=== PATIENT | female | born 1955 | race African-American/Black ===

== ENCOUNTER 2017-01-04 13:28 | Emergency (ER) | payer MEDICAID ==
[~2017-01-04] VITALS: Ht 167.6 cm; Wt 60.0 kg
[2017-01-04 15:26] LABS: BASOPHILS % 0.3 % (0.0-2.0); EOSINOPHILS % 0.2 % (0.0-5.0); HEMATOCRIT. 30.1 % (36.0-48.0); HEMOGLOBIN. 10.2 g/dL (12.0-16.0); LYMPHOCYTES % 42.5 % (20.0-50.0); MEAN CORPUSCULAR HEMOGLOBIN 34.3 pg (28.0-32.0); MEAN CORPUSCULAR VOLUME 100.9 fL (81.0-99.0); MEAN PLATELET VOLUME 9.3 fl (7.4-10.4); MONOCYTES % 12.6 % (2.0-8.0); NEUTROPHILS % 44.4 % (40.0-76.0); PLATELET 135 x1000/uL (130-400); RED BLOOD CELL COUNT 2.98 mill/uL (4.2-5.4); RED CELL DISTRIBUTION WIDTH 15.7 % (11.6-14.6)
[2017-01-04 15:27] LABS: CHLORIDE 108 mEq/L (98-107)
[2017-01-04 15:37] LABS: CARBON DIOXIDE 29 mEq/L (21-32); ETHANOL BLOOD < 10 mg/dL
[2017-01-04] MEDS ORDERED: IBUPROFEN 600MG TABLET PO ONE (17:15)
[2017-01-04 17:58] LABS: CLARITY URINE CLEAR (CLEAR); COLOR URINE YELLOW (YELLOW); GLUCOSE URINE NEGATIVE (NEGATIVE); KETONES URINE NEGATIVE (NEGATIVE); LEUKOCYTE ESTERASE URINE TRACE (NEGATIVE); NITRITE URINE NEGATIVE (NEGATIVE); OCCULT BLOOD URINE NEGATIVE (NEGATIVE); PROTEIN URINE NEGATIVE (NEGATIVE); SPECIFIC GRAVITY URINE 1.014 (1.005-1.030); UROBILINOGEN URINE 0.2 E.U./dL (0.2-1.0)
[2017-01-04 18:14] LABS: *AMPHETAMINES SCREEN URINE NEGATIVE (NEGATIVE); *BARBITURATES SCREEN URINE NEGATIVE (NEGATIVE); *BENZODIAZEPINES SCREEN URINE NEGATIVE (NEGATIVE); *COCAINE SCREEN URINE PRESUMTIVE POSITIVE (NEGATIVE); CANNABINOID URINE SCREEN PRESUMTIVE POSITIVE (NEGATIVE); METHADONE URINE SCREEN NEGATIVE (NEGATIVE); OPIATES URINE SCREEN NEGATIVE (NEGATIVE); PHENCYCLIDINE URINE SCREEN NEGATIVE (NEGATIVE)
[2017-01-04] MEDS: SULFAMETHOXAZOLE/TRIMETHOPRIM 800/160MG TABLET PO SCH (20:02)
[2017-01-05] MEDS ORDERED: HYDROCODONE/APAP 7.5/325MG 1 TAB TABLET PO ONE (03:15)
[2017-01-05] MEDS: SULFAMETHOXAZOLE/TRIMETHOPRIM 800/160MG TABLET PO SCH (09:54)
[2017-01-05 12:55] VITALS: BP 138/85
== END 2017-01-05 13:19 ==
LOC: ER 13:28
DX: R45.851 Suicidal ideations (principal); N39.0 Urinary tract infection, site not specified; F20.9 Schizophrenia, unspecified; F12.10 Cannabis abuse, uncomplicated; F14.10 Cocaine abuse, uncomplicated; G89.29 Other chronic pain; Z85.3 Personal history of malignant neoplasm of breast; Z90.710 Acquired absence of both cervix and uterus; Z98.890 Other specified postprocedural states; Z92.21 Personal history of antineoplastic chemotherapy
CPT/HCPCS: 36415; 80053; 80305; 80307; 80329; 81001; 85025; 99285; G0482; Z7610

== ENCOUNTER 2017-03-15 07:49 | Emergency (ER) | payer MEDICAID ==
[~2017-03-15] VITALS: Ht 162.6 cm; Wt 50.0 kg
[2017-03-15 09:16] LABS: HEMATOCRIT. 34.4 % (36.0-48.0); HEMOGLOBIN. 11.8 g/dL (12.0-16.0); MEAN CORPUSCULAR HEMOGLOBIN 34.1 pg (28.0-32.0); MEAN CORPUSCULAR VOLUME 99.3 fL (81.0-99.0); MEAN PLATELET VOLUME 9.2 fl (7.4-10.4); PLATELET 170 x1000/uL (130-400); RED BLOOD CELL COUNT 3.46 mill/uL (4.2-5.4); RED CELL DISTRIBUTION WIDTH 14.3 % (11.6-14.6)
[2017-03-15 09:34] LABS: CARBON DIOXIDE 27 mEq/L (21-32); CHLORIDE 107 mEq/L (98-107); ETHANOL BLOOD < 10 mg/dL
[2017-03-15 09:46] LABS: PLATELET ESTIMATE NORMAL
[2017-03-15 16:37] LABS: CLARITY URINE CLEAR (CLEAR); COLOR URINE YELLOW (YELLOW); GLUCOSE URINE NEGATIVE (NEGATIVE); KETONES URINE NEGATIVE (NEGATIVE); LEUKOCYTE ESTERASE URINE 1+ (NEGATIVE); NITRITE URINE NEGATIVE (NEGATIVE); OCCULT BLOOD URINE TRACE (NEGATIVE); PROTEIN URINE NEGATIVE (NEGATIVE); SPECIFIC GRAVITY URINE 1.021 (1.005-1.030)
[2017-03-15 16:54] LABS: *AMPHETAMINES SCREEN URINE NEGATIVE (NEGATIVE); *BARBITURATES SCREEN URINE NEGATIVE (NEGATIVE); *BENZODIAZEPINES SCREEN URINE NEGATIVE (NEGATIVE); *COCAINE SCREEN URINE PRESUMTIVE POSITIVE (NEGATIVE); CANNABINOID URINE SCREEN PRESUMTIVE POSITIVE (NEGATIVE); METHADONE URINE SCREEN NEGATIVE (NEGATIVE); OPIATES URINE SCREEN NEGATIVE (NEGATIVE); PHENCYCLIDINE URINE SCREEN NEGATIVE (NEGATIVE)
[2017-03-15] MEDS ORDERED: POTASSIUM CHLORIDE 20MEQ TABLET SR PO ONE (18:30)
[2017-03-15] MEDS ORDERED: LISI-604 PO (22:25)
[2017-03-15] MEDS ORDERED: TEMA15CA PO (22:25)
[2017-03-15] MEDS ORDERED: DIVA250T PO (22:25)
[2017-03-16] MEDS ORDERED: MAGNESIUM 1 G PREMIX 100 ML IV ONE (03:30)
[2017-03-16] MEDS ORDERED: POTASSIUM CHLORIDE 20MEQ TABLET SR PO ONE (03:30)
[2017-03-16] MEDS ORDERED: NITROFURANTOIN 100MG M/M CAPSULE PO ONE (06:45)
[2017-03-16 11:22] VITALS: BP 132/62
== END 2017-03-16 16:32 | disposition home or self-care (01) ==
LOC: ER 08:06
DX: R45.851 Suicidal ideations (principal); N39.0 Urinary tract infection, site not specified; F20.9 Schizophrenia, unspecified; I10 Essential (primary) hypertension; F12.10 Cannabis abuse, uncomplicated; F14.10 Cocaine abuse, uncomplicated; Z85.3 Personal history of malignant neoplasm of breast; Z90.710 Acquired absence of both cervix and uterus
CPT/HCPCS: 36415; 80048; 80305; 80307; 80329; 81001; 83735; 84132; 85025; 96365; 96366; 99285; G0482; J3475; Z7610

== ENCOUNTER 2017-04-03 12:40 | Emergency (ER) | payer MEDICAID ==
[~2017-04-03] VITALS: Ht 167.6 cm; Wt 59.0 kg
[~2017-04-03 12:40] MED LIST: DIVA250T PO; LISI-604 PO; TEMA15CA PO
[2017-04-03 15:23] LABS: *AMPHETAMINES SCREEN URINE NEGATIVE (NEGATIVE); *BARBITURATES SCREEN URINE NEGATIVE (NEGATIVE); *BENZODIAZEPINES SCREEN URINE NEGATIVE (NEGATIVE); *COCAINE SCREEN URINE PRESUMTIVE POSITIVE (NEGATIVE); CANNABINOID URINE SCREEN NEGATIVE (NEGATIVE); METHADONE URINE SCREEN NEGATIVE (NEGATIVE); OPIATES URINE SCREEN NEGATIVE (NEGATIVE); PHENCYCLIDINE URINE SCREEN NEGATIVE (NEGATIVE)
[2017-04-03 17:12] VITALS: BP 138/76
== END 2017-04-03 17:15 | disposition home or self-care (01) ==
LOC: ER 13:31
DX: M79.604 Pain in right leg (principal); M79.605 Pain in left leg; I10 Essential (primary) hypertension; F20.9 Schizophrenia, unspecified; F17.200 Nicotine dependence, unspecified, uncomplicated; F14.10 Cocaine abuse, uncomplicated; Z90.710 Acquired absence of both cervix and uterus; Z85.3 Personal history of malignant neoplasm of breast; Z98.890 Other specified postprocedural states
CPT/HCPCS: 80305; 93970; 99285; Z7610

== ENCOUNTER 2017-06-19 19:10 | Emergency (ER) | payer MEDICAID ==
[~2017-06-19] VITALS: Ht 165.1 cm; Wt 55.0 kg
[2017-06-19] MEDS ORDERED: HYDROCODONE/ACETAMINOPHEN 5/325MG TABLET PO ONE (21:45)
[2017-06-20 00:14] VITALS: BP 129/86
== END 2017-06-20 00:23 | disposition home or self-care (01) ==
LOC: ER 19:21
DX: R07.89 Other chest pain (principal); Z48.01 Encounter for change or removal of surgical wound dressing; I10 Essential (primary) hypertension; F20.9 Schizophrenia, unspecified; F17.200 Nicotine dependence, unspecified, uncomplicated; Z85.3 Personal history of malignant neoplasm of breast; Z90.11 Acquired absence of right breast and nipple
CPT/HCPCS: 71045; 99284; Z7610

== ENCOUNTER 2017-06-22 16:01 | Emergency (ER) | payer MEDICAID ==
[~2017-06-22] VITALS: Ht 165.1 cm; Wt 50.0 kg
[2017-06-22] MEDS ORDERED: HYDROCODONE/ACETAMINOPHEN 10/325MG TABLET PO ONE (17:00)
[2017-06-22 17:32] VITALS: BP 144/79
== END 2017-06-22 18:18 | disposition home or self-care (01) ==
LOC: ER 16:13
DX: G89.18 Other acute postprocedural pain (principal); N64.4 Mastodynia; I10 Essential (primary) hypertension; Z90.11 Acquired absence of right breast and nipple
CPT/HCPCS: 99283

== ENCOUNTER 2017-12-04 18:26 | Emergency (ER) | payer MEDICAID ==
[~2017-12-04] VITALS: Ht 167.6 cm; Wt 54.0 kg
[~2017-12-04 18:26] MED LIST changes: +DIVA-73 PO; -DIVA250T PO; +HYDR-4005 PO
[2017-12-04 23:33] LABS: BASOPHILS % 0.7 % (0.0-2.0); EOSINOPHILS % 4.4 % (0.0-5.0); HEMOGLOBIN. 12.5 g/dL (12.0-16.0); LYMPHOCYTES % 55.7 % (20.0-50.0); MEAN CORPUSCULAR HEMOGLOBIN 32.6 pg (28.0-32.0); MEAN CORPUSCULAR VOLUME 96.6 fL (81.0-99.0); MEAN PLATELET VOLUME 8.4 fl (7.4-10.4); MONOCYTES % 8.7 % (2.0-8.0); NEUTROPHILS % 30.5 % (40.0-76.0); PLATELET 173 x1000/uL (130-400); RED BLOOD CELL COUNT 3.83 mill/uL (4.2-5.4); RED CELL DISTRIBUTION WIDTH 14.7 % (11.6-14.6)
[2017-12-04 23:38] LABS: CHLORIDE 112 mEq/L (98-107)
[2017-12-04 23:43] LABS: ETHANOL BLOOD < 10 mg/dL
[2017-12-05] MEDS ORDERED: POTASSIUM CHLORIDE 20MEQ TABLET SR PO ONE ×2 (01:15→06:03)
[2017-12-05 01:46] LABS: CLARITY URINE CLEAR (CLEAR); COLOR URINE YELLOW (YELLOW); KETONES URINE NEGATIVE (NEGATIVE); LEUKOCYTE ESTERASE URINE 1+ (NEGATIVE); NITRITE URINE NEGATIVE (NEGATIVE); OCCULT BLOOD URINE NEGATIVE (NEGATIVE); PROTEIN URINE NEGATIVE (NEGATIVE); UROBILINOGEN URINE 0.2 E.U./dL (0.2-1.0)
[2017-12-05 01:57] LABS: *AMPHETAMINES SCREEN URINE NEGATIVE (NEGATIVE); *BARBITURATES SCREEN URINE NEGATIVE (NEGATIVE)
[2017-12-05 01:58] LABS: *BENZODIAZEPINES SCREEN URINE NEGATIVE (NEGATIVE); *COCAINE SCREEN URINE PRESUMTIVE POSITIVE (NEGATIVE); CANNABINOID URINE SCREEN PRESUMTIVE POSITIVE (NEGATIVE); METHADONE URINE SCREEN NEGATIVE (NEGATIVE); OPIATES URINE SCREEN NEGATIVE (NEGATIVE); PHENCYCLIDINE URINE SCREEN NEGATIVE (NEGATIVE)
[2017-12-05] MEDS ORDERED: IBUPROFEN 600MG TABLET PO ONE (18:15)
[2017-12-05] MEDS ORDERED: NITROFURANTOIN 100MG M/M CAPSULE PO ONE (18:15)
[2017-12-05] MEDS ORDERED: CLONIDINE 0.1MG TABLET PO ONE (18:15)
[2017-12-05 23:45] VITALS: BP 141/86
== END 2017-12-06 01:06 | disposition home or self-care (01) ==
LOC: ER 18:26
DX: F99 Mental disorder, not otherwise specified (principal); R45.851 Suicidal ideations; N39.0 Urinary tract infection, site not specified; E87.6 Hypokalemia; R51 Headache; W01.0XXA Fall on same level from slipping, tripping and stumbling without subsequent striking against object, initial encounter; Y93.89 Activity, other specified; Y92.238 Other place in hospital as the place of occurrence of the external cause
CPT/HCPCS: 36415; 70450; 80053; 80305; 80307; 80329; 81003; 85025; 99284; G0482; Z7610